=== PATIENT | male | born 1945 | race American Indian/Alaskan Native ===

== ENCOUNTER 2018-09-06 11:27 | Day surgery (SDC) | payer MEDICARE ==
[~2018-09-06 11:27] MED LIST: IOPIDINE ONE; MYDRIACYL ONE; NEO SYNEPHRINE ONE
[2018-09-06] MEDS ORDERED: IOPIDINE OS ONE (11:45)
[2018-09-06] MEDS ORDERED: MYDRIACYL OS ONE (11:46)
[2018-09-06] MEDS ORDERED: NEOFRIN OS ONE (11:47)
[2018-09-06 12:19] VITALS: BP 142/64
== END 2018-09-06 13:20 | disposition home or self-care (01) ==
LOC: OR 11:27
PROVIDERS: ATTEND Specialist
DX: H26.492 Other secondary cataract, left eye (principal); Z79.899 Other long term (current) drug therapy; Z98.41 Cataract extraction status, right eye; Z98.42 Cataract extraction status, left eye; Z98.890 Other specified postprocedural states
CPT/HCPCS: J2370